=== PATIENT | female | born 1960 | race Caucasian/White ===

== ENCOUNTER 2016-09-18 10:39 | Emergency (ER) | payer OTHER, MEDICARE ==
[~2016-09-18] VITALS: Ht 170.2 cm; Wt 79.4 kg
--- NOTE | 2016-09-18 11:20 | ED GENERAL ADULT ---
History of Present Illness General Chief Complaint: General Adult Stated Complaint: CRAMPS/PAIN S/P COCAINE USE Source: patient Exam Limitations: no limitations Vital Signs & Intake/Output Vital Signs & Intake/Output Vital Signs Date Time Temp Pulse Resp B/P B/P Pulse O2 O2 Flow FiO2 Mean Ox Delivery Rate 09/18 1721 100.2 09/18 1721 100.2 09/18 1625 100.6 93 18 168/81 96 Room Air 09/18 1615 100.6 09/18 1045 98.1 82 15 179/99 100 Room Air Allergies Coded Allergies: No Known Allergies (09/18/16) Reconcile Medications Hyoscyamine (Levsin) 0.125 MG TABLET 1 TAB PO Q4 PRN ABDOMINAL SPASMS Metoclopramide HCl (Reglan) 10 MG TABLET 1 TAB PO 4 TIMES/DAY PRN NAUSEA 30 minutes before meals and bedtime Triage Note: PT TO ED FOR NAUSEA AND VOMITING AFTER USING COCAINE YESTERDAY. Triage Nurses Notes Reviewed? yes Onset: Gradual Duration: day(s): (1) Timing: no prior history Injury Environment: home Severity: moderate Severity Numbers: 7 No Modifying Factors: none HPI: Patient is a 56-year-old female with history of hypertension presenting to the emergency department with chief complaint of abdominal pain, nausea and vomiting since yesterday after using cocaine. She reports that she used cocaine yesterday afternoon around 2 PM and by 4 PM she was experiencing abdominal pain. His crampy and tight in nature. Radiates over the upper aspect of her abdomen. Denies any shortness of breath. No palpitations. She denies alcohol use per report that she smokes marijuana daily. She is unsure if the cocaine was laced with anything. Denies taking anything to see if it would help with her symptoms. She reports that she recently moved here from [place] and does not currently have a primary care physician. She does not use cocaine routinely, reports that she was "partying" with some friends yesterday and it just happened. Denies any chest pain or palpitations. Denies any back pain. NO BLOOD IN STOOL. (MELCHOR PAGE) Past History Travel History Traveled to [place] past 21 day No Medical History Any Pertinent Medical History? see below for history Neurological: NONE EENT: NONE Cardiovascular: HTN HIGH CHOLESTEROL Respiratory: NONE Gastrointestinal: NONE Hepatic: NONE Renal: NONE Musculoskeletal: NONE Psychiatric: NONE Endocrine: NONE Blood Disorders: NONE Cancer(s): NONE Surgical History Surgical History: non-contributory Psychosocial History What is your primary language Yoruba Tobacco Use: Current Daily Use Daily Tobacco Use Amount/Type: => 5 Cigarettes daily ETOH Use: heavy use Illicit Drug Use: cocaine, marijuana Family History Hx Contributory? No (MELCHOR PAGE) Review of Systems Review of Systems Constitutional: Reports: no symptoms. Comments Review of systems: See HPI, All other systems negative. Constitutional, no chills fever or weight loss HEENT: No visual changes no sore throat no congestion Cardiovascular: No chest pain ,palpitation , orthopnea or ankle swelling Skin, no jaundice no rashes Respiratory: No dyspnea cough sputum or hemoptysis GI: No diarrhea : No dysuria No hematuria Muscle skeletal: no back pain, no neck pain, Neurologic: No numbness no confusion Psych:POS stress anxietY, DENIES DEPRESSION Heme/endocrine: No bruising no bleeding no polyuria or polydipsia Immunology: No splenectomy or history of AIDS (MELCHOR PAGE) Physical Exam Physical Exam General Appearance: alert, awake, anxious, mild distress Comments: Well-developed well-nourished person in distress HEENT: Pupils equally round and reactive to light and accommodation. Nose is atraumatic. Pharynx normal. No swelling or edema. Moist oral mucosa. Neck: Normal inspection, full range of motion Back: Nontender, no CVA tenderness. Full range of motion Cardiovascular: Regular rate and rhythms no murmurs rubs or gallops, normal JVP Respiratory: Chest nontender. No respiratory distress.breath sounds clear to auscultation bilaterally Abdomen: Soft,TENDER TO Palpation in the epigastric region AND PERIUMBILICAL REGION, mild guarding nondistended, no appreciable organomegaly. Normal bowel sounds. No ascites Extremity: No edema Neuro: Alert oriented x3 Skin: No appreciable rash on exposed skin, skin is warm and dry. Psych: Anxious, memory and judgment is normal. Core Measures ACS in differential dx? Yes CVA/TIA Diagnosis: No Severe Sepsis Present: No Septic Shock Present: No (MELCHOR PAGE) Progress Differential Diagnoses I considered the following diagnoses in my evaluation of the patient: Gastritis , ischemic bowel, actually abnormally, drug reaction, ACS Plan of Care: Orders Procedure Date/time Status TROPONIN LEVEL 05/24 1545 Complete EKG 09/18 1545 Active URINE DRUG SCREEN FOR ER ONLY 09/18 1119 Complete URINALYSIS 09/18 1119 Complete TROPONIN LEVEL 09/18 1119 Complete LIPASE 09/18 1119 Complete COMPREHENSIVE METABOLIC PANEL 09/18 1119 Complete CBC WITHOUT DIFFERENTIAL 09/18 111 Complete AMYLASE 09/18 111 Complete EKG 09/18 1042 Active Laboratory Tests 09/18/16 1542: Troponin I 0.01 09/18/16 1340: Urine Opiates Screen 302.00, Methadone Screen 41, Barbiturate Screen < 60, Ur Phencyclidine Scrn < 6.00, Amphetamines Screen < 100, U Benzodiazepines Scrn < 85, Urine Cocaine Screen > 1000.0 H, Urine Cannabis Screen > 80.00 H, Urine Color YEL, Urine Clarity CLEAR, Urine pH 7.0, Ur Specific [place] 1.015, Urine Protein >=300 H, Urine Ketones 40 H, Urine Nitrite NEG, Urine Bilirubin NEG, Urine Urobilinogen 0.2, Ur Leukocyte Esterase NEG, Ur Microscopic SEDIMENT EXAMINED, Urine RBC 10-15 H, Urine WBC RARE, Ur Epithelial Cells RARE, Urine Bacteria RARE H, Urine Mucus RARE, Urine Hemoglobin LARGE H, Urine Glucose NEG 09/18/16 1145: Anion Gap 18 H, Estimated GFR > 60, BUN/Creatinine Ratio 16.7, Glucose 134 H, Calcium 9.9, Total Bilirubin 2.3 H, AST 38 H, ALT 61 H, Alkaline Phosphatase 110, Troponin I < 0.01, Total Protein 8.8 H, Albumin 5.3 H, Globulin 3.5, Albumin/Globulin Ratio 1.5, Amylase 68, Lipase 59, CBC w Diff MAN DIFF ORDERED, RBC 4.03 L, MCV 91.1, MCH 30.8, RDW 14.7 H, MPV 8.4, Gran % 92.4 H, Lymphocytes % 5.0 L, Monocytes % 2.4, Eosinophils % 0, Basophils % 0.2, Absolute Granulocytes 17.4 H, Absolute Lymphocytes 0.9 L, Absolute Monocytes 0.5, Absolute Eosinophils 0, Absolute Basophils 0, Platelet Estimate VERIFIED BY SMEAR, Anisocytosis 1+, PUBS MCHC 33.8 Diagnostic Imaging: Viewed by Me: CT Scan. Discussed w/RAD: CT Scan. Radiology Impression: ATIENT: CLAUDINE MUNOZ PRESENT AGE: 56 PATIENT ACCOUNT NO: [id number] : 58 LOCATION: [facility] ORDERING PHYSICIAN: MELCHOR CHRISTINA SERVICE DATE: 09/18/16 EXAM TYPE: CAT - CT ABD & PELVIS W IV CONTRAST EXAMINATION: CT ABDOMEN AND PELVIS WITH CONTRAST CLINICAL INFORMATION: Abdominal pain. Question biliary disease clinically. COMPARISON: None TECHNIQUE: Multidetector volumetric imaging was performed of the abdomen and pelvis before and after the IV administration of 94 mL of Optiray 320 intravenous contrast. No adverse contrast reaction noted. Sagittal and coronal reformatted images were obtained on the technologist's workstation. DLP: 376 mGy-cm FINDINGS: LUNG BASES: Unremarkable. LIVER AND SPLEEN: Unremarkable. There is a prominent Chanelle's lobe of the liver. PANCREAS GALLBLADDER AND BILIARY TREE: Unremarkable. KIDNEYS, URETERS, AND ADRENALS: Unremarkable. URINARY BLADDER: Moderately distended and unremarkable. GI TRACT: Unremarkable. PERITONEAL CAVITY: No intraperitoneal free fluid, masses, or adenopathy. RETROPERITONEUM: Moderate atherosclerotic aortic calcification without aneurysmal dilatation. PELVIC ORGANS: Unremarkable. Pelvic calcifications are likely vascular and/or a small fibroid in the right side of the uterus. OSSEOUS STRUCTURES: No aggressive appearing osseous lesions are seen. There is grade 1 degenerative anterolisthesis of L5 on S1 assuming 5 lumbar type vertebra. ANTERIOR ABDOMINAL WALL AND SOFT TISSUES: Intact without evidence of an underlying hernia. IMPRESSION: Largely unremarkable examination without evidence of an acute intra-abdominal process. DICTATED BY: PARVEEN NEWTON MD DATE/TIME DICTATED:09/18/161335 CASSANDRA DEVELOPER:AIDA DATE/TIME TRANSCRIBED:09/18/161335 CONFIDENTIAL, DO NOT COPY WITHOUT APPROPRIATE AUTHORIZATION. <Electronically signed in Other Vendor System> SIGNED BY: PARVEEN NEWTON MD 09/18/16 8967 Initial ED EKG: SINUS RHYTHM AT 70 BPM Kiet t ABNORMALITY IS NOTED ANTERIOR AND LATERAL LEADS Repeat EKG: unchanged Comments: Patient feeling much better after IV hydration, Toradol and Tylenol. Patient sleeping on stretcher. CT is negative for any acute process. She was informed of all of her results. Slight anion gap of 18, patient was medicated with 2 L of saline here in the emergency department., No nausea and vomiting at this time. She will be discharged home and follow up with PCP. Patient's was notified to pick her up as she does have cocaine and benzos on board. D/W DR WALTERS AND HE AGRESS WITH PLAN. (MELCHOR PAGE) Departure Departure Time of Disposition: 1707 Disposition: HOME OR SELF CARE Condition: Stable Clinical Impression Primary Impression: Abdominal pain Qualifiers: Abdominal location: generalized Qualified Code: R10.84 - Generalized abdominal pain Secondary Impressions: Polysubstance abuse Referrals: PATIENT HAS NO PRIMARY CARE DR (PCP/Family) Additional Instructions: Follow-up with your primary care physician cALL TO MAKE APPT. Increase fluids. Return for worsening symptoms or concerns. Do not use any illicit drugs. Your prescriptions were sent to the [facility]. Departure Forms: Customer Survey General Discharge Information Prescriptions: Current Visit Scripts Hyoscyamine (Levsin) 1 TAB PO Q4 PRN ABDOMINAL SPASMS #20 TAB Metoclopramide HCl (Reglan) 1 TAB PO 4 TIMES/DAY PRN NAUSEA #20 TAB 30 minutes before meals and bedtime (MELCHOR PAGE) PA/GARMENT TURNER Co-Sign Statement Statement: ED Attending supervision documentation- [] I saw and evaluated the patient. I have also reviewed all the pertinent lab results and diagnostic results. I agree with the findings and the plan of care as documented in the PA's/GARMENT TURNER's documentation. [X] I have reviewed the ED Record and agree with the PA's/GARMENT TURNER's documentation. [] Additions or exceptions (if any) to the PAs/GARMENT TURNER's note and plan are summarized below: [] (ROMEO YATES,GIFTY Tran) Critical Care Note Critical Care Note Critical Care Time: non-applicable (MELCHOR PAGE)
[2016-09-18 11:57] LABS: ABSOLUTE BASOPHIL COUNT 0 /CUMM (0.0-0.2); ABSOLUTE EOSINOPHIL COUNT 0 /CUMM (0.0-0.7); ABSOLUTE GRANULOCYTE CT 17.4 /CUMM (1.4-6.5); ABSOLUTE LYMPH COUNT 0.9 /CUMM (1.2-3.4); ABSOLUTE MONOCYTE COUNT 0.5 /CUMM (0.10-0.60); BASOPHIL % 0.2 % (0.0-2.0); EOSINOPHIL % 0 % (0-5); GRANULOCYTE % 92.4 % (42.2-75.2); HEMATOCRIT 36.7 % (37-47); MEAN CORPUSCULAR HGB 30.8 PG (27.0-31.0); MEAN CORPUSCULAR HGB CONC 33.8 G/DL (33.0-37.0); MEAN CORPUSCULAR VOLUME 91.1 FL (81.0-99.0); MEAN PLATELET VOLUME 8.4 FL (7.4-10.4); PLATELET COUNT 328 /CUMM (130-400); RBC DISTRIBUTION WIDTH 14.7 % (11.5-14.5); RED BLOOD CELL CT 4.03 /CUMM (4.20-5.40); WHITE BLOOD CELL COUNT 18.8 /CUMM (4.8-10.8)
--- NOTE | 2016-09-18 13:48 | CT SCAN REPORT ---
EXAMINATION: CT ABDOMEN AND PELVIS WITH CONTRAST CLINICAL INFORMATION: Abdominal pain. Question biliary disease clinically. COMPARISON: None TECHNIQUE: Multidetector volumetric imaging was performed of the abdomen and pelvis before and after the IV administration of 94 mL of Optiray 320 intravenous contrast. No adverse contrast reaction noted. Sagittal and coronal reformatted images were obtained on the technologist's workstation. DLP: 376 mGy-cm FINDINGS: LUNG BASES: Unremarkable. LIVER AND SPLEEN: Unremarkable. There is a prominent Chanelle's lobe of the liver. PANCREAS GALLBLADDER AND BILIARY TREE: Unremarkable. KIDNEYS, URETERS, AND ADRENALS: Unremarkable. URINARY BLADDER: Moderately distended and unremarkable. GI TRACT: Unremarkable. PERITONEAL CAVITY: No intraperitoneal free fluid, masses, or adenopathy. RETROPERITONEUM: Moderate atherosclerotic aortic calcification without aneurysmal dilatation. PELVIC ORGANS: Unremarkable. Pelvic calcifications are likely vascular and/or a small fibroid in the right side of the uterus. OSSEOUS STRUCTURES: No aggressive appearing osseous lesions are seen. There is grade 1 degenerative anterolisthesis of L5 on S1 assuming 5 lumbar type vertebra. ANTERIOR ABDOMINAL WALL AND SOFT TISSUES: Intact without evidence of an underlying hernia. IMPRESSION: Largely unremarkable examination without evidence of an acute intra-abdominal process.
[2016-09-18 16:25] VITALS: BP 168/81
[2016-09-18] MEDS ORDERED: LEVSIN0.125 M1 PO (17:10)
[2016-09-18] MEDS ORDERED: REGLAN10 M1 PO (17:10)
== END 2016-09-18 18:28 ==
LOC: ERH 10:39
PROVIDERS: Physician Assistant
DX: R10.10 Upper abdominal pain, unspecified (principal); F14.10 Cocaine abuse, uncomplicated; F12.10 Cannabis abuse, uncomplicated
CPT/HCPCS: 74177; 80307; 81001; 93005; 93010; 96374; 96375; 96376; J1885; J2765